=== PATIENT | female | born 1980 | race Caucasian/White ===

== ENCOUNTER 2022-04-21 10:13 | Outpatient (REF) | payer OTHER, SELFPAY ==
--- NOTE | ~2022-04-21 | XR_ITS ---
EXAMINATION: XR CHEST 2 VIEWS CLINICAL INFORMATION: Epigastric pain. COMPARISON: None. TECHNIQUE: Frontal and lateral views of the chest were obtained. FINDINGS: The heart, great vessels, pulmonary vasculature and mediastinum are normal. The lungs show no focal infiltrate, effusion or pneumothorax. There is no acute osseous abnormality. XR/XR chest 2V IMPRESSION: No active cardiopulmonary disease.
[2022-04-21 13:36] LABS: Hematocrit 37.8 % (37.0-47.0); Hemoglobin 12.8 g/dl (12.0-16.0); Mean Corpuscular HGB Conc 33.9 g/dl (31.0-35.0); Mean Corpuscular Hemoglobin 30.2 pg (27.0-33.0); Mean Corpuscular Volume 89.2 fL (80.0-98.0); Mean Platelet Volume 9.6 fL (9.4-12.3); Platelet Count 370 X10*3/uL (160-400); Red Blood Count 4.24 X10*6/uL (4.20-5.50); Red Cell Distribution Width 12.5 % (11.0-16.0); White Blood Count 6.5 X10*3/uL (4.8-10.8)
[2022-04-21 13:46] LABS: Alanine Aminotransferase 11 U/L (0-31); Albumin Level 4.5 g/dL (3.5-5.0); Alkaline Phosphatase 56 U/L (39-117); Anion Gap 14 (12-20); Aspartate Amino Transferase 13 U/L (5-31); Bilirubin Total 0.7 mg/dL (0.0-1.0); Blood Urea Nitrogen 12 mg/dL (9-16); Calcium 9.4 mg/dL (8.4-10.2); Carbon Dioxide 27 mmol/L (22-29); Chloride 104 mmol/L (96-108); Estimated Glomerular Filt Rate > 60; Glucose Fasting 102 mg/dL (60-99); Potassium 4.4 mmol/L (3.3-5.1); Sodium 141 mmol/L (135-145); Total Protein 6.9 g/dL (6.5-8.0)
[2022-04-21 14:13] LABS: Troponin-I High Sensitivity < 3.5 ng/L (<3.5-17.0)
== END 2022-04-21 10:14 | disposition home or self-care (01) ==
LOC: HO.10HDL 10:13
PROVIDERS: PCP Hospitalist; Visit Provider Nurse Practitioner Family
DX: R10.13 Epigastric pain (principal)
CPT/HCPCS: 36415; 71046; 80053; 84484; 85027

== ENCOUNTER 2022-05-26 10:26 | Outpatient (REF) | payer OTHER, SELFPAY ==
[2022-05-26 14:04] LABS: Hematocrit 37.4 % (37.0-47.0); Hemoglobin 12.8 g/dl (12.0-16.0); Mean Corpuscular HGB Conc 34.2 g/dl (31.0-35.0); Mean Corpuscular Hemoglobin 29.6 pg (27.0-33.0); Mean Corpuscular Volume 86.6 fL (80.0-98.0); Mean Platelet Volume 9.4 fL (9.4-12.3); Platelet Count 321 X10*3/uL (160-400); Red Blood Count 4.32 X10*6/uL (4.20-5.50); Red Cell Distribution Width 12.2 % (11.0-16.0); White Blood Count 6.9 X10*3/uL (4.8-10.8)
[2022-05-26 14:35] LABS: Alanine Aminotransferase 12 U/L (0-31); Albumin Level 4.2 g/dL (3.5-5.0); Alkaline Phosphatase 55 U/L (39-117); Anion Gap 13 (12-20); Aspartate Amino Transferase 13 U/L (5-31); Bilirubin Total 0.6 mg/dL (0.0-1.0); Blood Urea Nitrogen 13 mg/dL (9-16); Calcium 9.2 mg/dL (8.4-10.2); Carbon Dioxide 26 mmol/L (22-29); Chloride 105 mmol/L (96-108); Cholesterol 200 mg/dL; Estimated Glomerular Filt Rate > 60; Glucose Fasting 95 mg/dL (60-99); HDL Cholesterol 45 mg/dL; LDL Cholesterol Calculated 137 mg/dl; Potassium 4.4 mmol/L (3.3-5.1); Sodium 140 mmol/L (135-145); Total Protein 6.6 g/dL (6.5-8.0); Triglycerides 94 mg/dL
[2022-05-26 14:54] LABS: TSH reflex Free T4 1.54 uIU/mL (0.32-4.0)
== END 2022-05-26 10:27 | disposition home or self-care (01) ==
LOC: HO.WFDLDS 10:26
PROVIDERS: Visit Provider Hospitalist
DX: Z00.00 Encounter for general adult medical examination without abnormal findings (principal); R92.8 Other abnormal and inconclusive findings on diagnostic imaging of breast
CPT/HCPCS: 36415; 80053; 80061; 84443; 85027